=== PATIENT | female | born 2000 | race Caucasian/White ===

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

== ENCOUNTER 2021-03-12 18:15 | Inpatient (IN) | payer BC, OTHER ==
[2021-03-12 19:34] VITALS: BMI 26.2
[2021-03-12 20:53] LABS: BASO % 0.2 % (0-2.0); EOS % 3.1 % (0-4.5); HEMATOCRIT 35.1 % (32.4-45.2); HEMOGLOBIN 11.7 GM/dL (10.7-15.3); LYMPH % 21.2 % (8-40); MCH 28.9 pg (25.7-33.7); MCHC 33.4 g/dl (32.0-36.0); MEAN CELL VOLUME 86.6 fl (80-96); MEAN PLT VOLUME 9.6 fl (7.5-11.1); MONO % 10.4 % (3.8-10.2); NEUT % 65.1 % (42.8-82.8); PLATELET COUNT 159 10^3/uL (134-434); RBC 4.05 M/mm3 (3.60-5.2); RDW 16.1 % (11.6-15.6); WHITE BLOOD COUNT 5.2 K/mm3 (4.0-10.0)
[2021-03-12 21:00] LABS: INR 0.93 (0.83-1.09); PROTHROMBIN TIME (PATIENT) 11.5 SEC (9.7-13.0)
[2021-03-12 21:02] LABS: ACTIVATED PTT 23.6 SECONDS (25.2-36.5)
[2021-03-12 21:19] LABS: CALCIUM 9.1 mg/dL (8.5-10.1)
[2021-03-12 21:20] LABS: BLOOD UREA NITROGEN 4.4 mg/dL (7-18)
[2021-03-12 21:22] LABS: CREATININE 0.5 mg/dL (0.55-1.3)
[2021-03-12 22:12] LABS: HIV INTERPRETATION NEGATIVE (NEGATIVE)
[2021-03-12] MEDS ORDERED: DINOPROSTONE 10 MG VAGINAL SUPPOSITORY VG ONE (22:30)
[2021-03-13] MEDS ORDERED: INSULIN (NOVOLOG) ASPART 100 UNITS/ML 10ML VIAL SQ ONE ×2 (07:00→17:48)
[2021-03-13] MEDS ORDERED: PENICILLIN G POTASSIUM 20,000,000 (20Mm) UNITS VIAL IVPB ONE ×2 (14:09)
[2021-03-13] MEDS ORDERED: OXYTOCIN 30 UNITS in 0.9% NS 30 UNIT/500 ML INFUS.BAG IVPB SCH (14:15)
[2021-03-13] MEDS ORDERED: SODIUM CHLORIDE 1,000 ML IV SCH (14:15)
[2021-03-13] MEDS ORDERED: DEXTROSE 5%-NORMAL SALINE 1,000 ML IV SCH (14:15)
[2021-03-13] MEDS ORDERED: PENICILLIN G POTASSIUM 5,000,000 UNIT in DEXTROSE 5%-WATER - 250 ML IVPB ONE (15:00)
[2021-03-13] MEDS: PENICILLIN G POTASSIUM 2,500,000 UNIT in DEXTROSE 5%-WATER - 100 ML IVPB SCH (23:59)
[2021-03-14] MEDS: PENICILLIN G POTASSIUM 2,500,000 UNIT in DEXTROSE 5%-WATER - 100 ML IVPB SCH ×5 (03:30→19:23)
[2021-03-14] MEDS ORDERED: FENTANYL/BUPIVACAINE/NS/PF - PCEA - 50 ML DISP.SYRIN EP ONE ×2 (04:02→08:57)
[2021-03-14] MEDS: FENTANYL/BUPIVACAINE/NS/PF - PCEA - 50 ML DISP.SYRIN EP SCH ×2 (04:40→09:00)
[2021-03-14] MEDS ORDERED: NALOXONE HCL 0.4 MG/ML VIAL IVPUSH PRN (04:54)
[2021-03-14] MEDS ORDERED: PCA PUMP NR ONE (07:29)
[2021-03-14] MEDS ORDERED: SODIUM CHLORIDE 1,000 ML IV STA (09:15)
[2021-03-14 10:10] LABS: SARS-CoV-2 NAA Not Detected (Not Detected)
[2021-03-14] MEDS ORDERED: OXYTOCIN 20 UNITS in 0.9% NS 20 UNIT/1,000 ML INFUS.BAG IV ONE (10:14)
[2021-03-14 14:48] LABS: CORD BASE EXCESS -8.7 mmol/L (0-2); CORD HCO3 21.2 mmHg (20-29); CORD PCO2 61.9 mmHg (30-78); CORD pH 7.153 (7.14-7.44)
[2021-03-14 14:51] LABS: CORD BASE EXCESS -7.6 mmol/L (0-2); CORD HCO3 18.7 mmHg (20-29); CORD PCO2 40.7 mmHg (30-78); CORD pH 7.279 (7.14-7.44)
[2021-03-14] MEDS ORDERED: WITCH HAZEL 50% (TUCKS) 40 PAD/JAR PAD TP PRN (15:17)
[2021-03-14] MEDS ORDERED: BENZOCAINE 20% 57 GM BOTTLE TP PRN (15:17)
[2021-03-14] MEDS ORDERED: BENZOCAINE 28 GM HEMORRHOIDAL OINTMENT TP PRN (15:17)
[2021-03-14] MEDS ORDERED: OXYTOCIN 20 UNITS in 0.9% NS 20 UNIT/1,000 ML INFUS.BAG IV SCH (15:30)
[2021-03-14] MEDS ORDERED: IBUPROFEN 600 MG TABLET (FP) PO ONE (16:10)
[2021-03-14] MEDS ORDERED: ACETAMINOPHEN 325 MG TABLET (FP) ONE (16:10)
[2021-03-14] MEDS: ACETAMINOPHEN 325 MG TABLET (FP) PO PRN ×3 (16:15→22:58)
[2021-03-14] MEDS: IBUPROFEN 600 MG TABLET (FP) PO PRN ×2 (16:15→20:13)
[2021-03-15] MEDS: ACETAMINOPHEN 325 MG TABLET (FP) PO PRN ×3 (08:58→20:22)
[2021-03-15] MEDS: IBUPROFEN 600 MG TABLET (FP) PO PRN ×3 (08:59→20:23)
[2021-03-15] MEDS: PRENATAL VITAMINS W/ FOLIC ACID TABLET (FP) PO SCH (09:40)
[2021-03-15 09:52] LABS: BASO % 0.1 % (0-2.0); EOS % 0.7 % (0-4.5); HEMATOCRIT 32.6 % (32.4-45.2); HEMOGLOBIN 10.6 GM/dL (10.7-15.3); LYMPH % 19.3 % (8-40); MCH 28.5 pg (25.7-33.7); MCHC 32.6 g/dl (32.0-36.0); MEAN CELL VOLUME 87.5 fl (80-96); MEAN PLT VOLUME 10.2 fl (7.5-11.1); MONO % 8.2 % (3.8-10.2); NEUT % 71.7 % (42.8-82.8); PLATELET COUNT 136 10^3/uL (134-434); RBC 3.73 M/mm3 (3.60-5.2); RDW 16.4 % (11.6-15.6); WHITE BLOOD COUNT 6.4 K/mm3 (4.0-10.0)
[2021-03-15] MEDS: DOCUSATE SODIUM 100 MG CAPSULE (FP) PO SCH (21:25)
[2021-03-16] MEDS: DOCUSATE SODIUM 100 MG CAPSULE (FP) PO SCH (05:34)
[2021-03-16] MEDS: ACETAMINOPHEN 325 MG TABLET (FP) PO PRN (05:48)
[2021-03-16] MEDS: IBUPROFEN 600 MG TABLET (FP) PO PRN (05:48)
[2021-03-16] MEDS: PRENATAL VITAMINS W/ FOLIC ACID TABLET (FP) PO SCH (09:51)
[2021-03-16 10:59] VITALS: BP 104/70; PULSE 85; TEMP 97.6
== END 2021-03-16 13:05 | disposition home or self-care (01) | DRG 807 ==
LOC: JLDR 18:15 → J3W 03-14 17:00
PROVIDERS: ADMIT Obstetrics & Gynecology Maternal & Fetal Medicine; ATTEND Obstetrics & Gynecology Maternal & Fetal Medicine
PROC: 3E0P7VZ Introduction of Hormone into Female Reproductive, Via Natural or Artificial Opening (ICD-10-PCS; 2021-03-12)
PROC: 3E033VJ Introduction of Other Hormone into Peripheral Vein, Percutaneous Approach (ICD-10-PCS; 2021-03-13)
PROC: 10D07Z6 Extraction of Products of Conception, Vacuum, Via Natural or Artificial Opening (ICD-10-PCS; principal; 2021-03-14)
DX: O41.03X0 Oligohydramnios, third trimester, not applicable or unspecified (principal); Z37.0 Single live birth; O76 Abnormality in fetal heart rate and rhythm complicating labor and delivery; O24.414 Gestational diabetes mellitus in pregnancy, insulin controlled; O63.1 Prolonged second stage (of labor); O32.6XX0 Maternal care for compound presentation, not applicable or unspecified; O70.1 Second degree perineal laceration during delivery; Z3A.38 38 weeks gestation of pregnancy
CPT/HCPCS: 36415; 36600; 59409; 80048; 82803; 82962; 85025; 85610; 85730; 86780; 86850; 86900; 86901; 87389; 88307-TC; C9803; U0003; U0005